=== PATIENT | male | born 1990 | race Caucasian/White ===

== ENCOUNTER 2018-05-19 15:56 | Emergency (ER) | payer MEDICAID ==
[2018-05-19 16:04] VITALS: RESP 18; TEMP 98.1; O2SAT 98; BMI 26.6
[2018-05-19] MEDS ORDERED: Sodium Chloride 0.9% 1,000 ML IV STA (16:11)
[2018-05-19] MEDS ORDERED: Morphine 4 mg/ml ISec IVP STA (16:11)
--- NOTE | 2018-05-19 16:11 | ED PDOC ---
Arrival/HPI - General Chief Complaint: Rib Injury Time Seen by Provider: 05/19/18 16:06 Historian: Patient - History of Present Illness Narrative History of Present Illness (Text): 05/19/18 16:06 A 28 year old male, no significant past medical history, nkda, GCS 15, does not take any anti-platelets or any anti-coagulants, presents to the emergency department complaining of right lower rib and rt. upper abdominal pain s/p fall this morning. 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 upper abdominal region. Patient also mentions every time he takes a deep breath , coughs, or turns, pain worsens, no left sided chest pain, no head or neck injury, no back injury, no LOC, able to recall the whole event. Patient denies any cervical spinal injury, hematuria, fever, chills, chest pain, shortness of breath, palpitations, or any other complaints at this time. Time/Duration: Other (this morning) Symptom Onset: Sudden Symptom Course: Unchanged Past Medical History - Provider Review Nursing Documentation Reviewed: Yes - Infectious Disease Hx of Infectious Diseases: None - Psychiatric Hx Substance Use: No - Surgical History Other/Comment: mouth surgery - Anesthesia Hx Anesthesia: Yes Hx Anesthesia Reactions: No Hx Malignant Hyperthermia: No Family/Social History - Physician Review Nursing Documentation Reviewed: Yes Family/Social History: No Known Family HX Smoking Status: Never Smoked Hx Alcohol Use: Yes Frequency of alcohol use: Socially Hx Substance Use: No Allergies/Home Meds Allergies/Adverse Reactions: Allergies No Known Allergies Allergy (Verified 05/19/18 16:05) Review of Systems - Physician Review All systems were reviewed & negative as marked: Yes - Review of Systems Constitutional: absent: Fatigue, Fevers, Night Sweats Respiratory: absent: SOB Cardiovascular: absent: Chest Pain, Palpitations Gastrointestinal: Abdominal Pain. absent: Nausea, Vomiting Genitourinary Male: absent: Hematuria Musculoskeletal: Arthralgias. absent: Back Pain, Neck Pain, Joint Swelling, Myalgias Skin: absent: Rash, Pruritis, Skin Lesions, Laceration, Cellulitis Neurological: absent: Headache, Dizziness, Focal Weakness, Gait Changes, Speech Changes, Facial Droop, Disequilibrium, Seizure Psychiatric: absent: Anxiety, Depression, Suicidal Ideation Physical Exam Vital Signs Reviewed: Yes Vital Signs Temp Pulse Resp BP Pulse Ox 05/19/18 16:36 79 18 133/68 98 05/19/18 16:03 98.1 F 82 18 135/71 98 Temperature: Afebrile Blood Pressure: Normal Pulse: Regular Respiratory Rate: Normal Appearance: Positive for: Uncomfortable Pain Distress: Severe Mental Status: Positive for: Alert and Oriented X 3 - Systems Exam Head: Present: Atraumatic, Normocephalic, Other (no facial bony tenderness or swelling). No: Tenderness, Contusion, Swelling, Ecchymosis, Abrasion, Laceration Pupils: Present: PERRL. No: Sluggish, Non-Reactive Extroacular Muscles: Present: EOMI. No: Entrapment Conjunctiva: Present: Normal Ears: Present: NORMAL TM, Normal Canal. No: Erythema Mouth: Present: Moist Mucous Membranes Pharnyx: Present: Normal. No: ERYTHEMA, EXUDATE, TONSILS ENLARGED Nose (External): Present: Atraumatic. No: Abrasion, Contusion, Laceration Nose (Internal): Present: Normal Inspection, No Active Bleeding. No: Rhinorrhea , Septal Hematoma, Epistaxis Neck: Present: Normal Range of Motion, Trachea Midline. No: Meningeal Signs, MIDLINE TENDERNESS, Paraspinal Tenderness, Lymphadenopathy Respiratory/Chest: Present: Clear to Auscultation, Good Air Exchange, Tender to Palpation (tenderness to right anterior lateral lower ribcage region). No: Respiratory Distress, Accessory Muscle Use, Wheezes, Rales, Retracting, Rhonchi , Tachypneic Cardiovascular: Present: Regular Rate and Rhythm, Normal S1, S2. No: Murmurs Abdomen: Present: Tenderness (+TTP on the RUQ region, negative weinberg sign), Normal Bowel Sounds. No: Distention, Rebound, Guarding, Scars Back: Present: Normal Inspection. No: CVA Tenderness, Midline Tenderness, Paraspinal Tenderness, Pain with Leg Raise, Decubitus Ulcer Upper Extremity: Present: Normal Inspection, Normal ROM, Neurovascularly Intact , Capillary Refill < 2s. No: Cyanosis, Edema, Deformity Lower Extremity: Present: Normal Inspection, NORMAL PULSES, Normal ROM, Neurovascularly Intact, Capillary Refill < 2 s. No: Edema, Tenderness, Swelling , Deformity Neurological: Present: GCS=15, CN II-XII Intact, Speech Normal, Motor Func Grossly Intact, Gait Normal, Memory Normal Skin: Present: Warm, Dry, Normal Color. No: Rashes Psychiatric: Present: Alert, Oriented x 3, Normal Insight, Normal Concentration Medical Decision Making ED Course and Treatment: 05/19/18 16:08 Impression: 28 year old male with right rib pain s/p fall. Physical exam shows tenderness to right anterior lateral lower ribcage; and abdominal RUQ. Plan: -- Abd/Pelvis CT IV contrast only -- Chest CT w contrast -- Labs -- Morphine -- IV Fluids -- Reassess and disposition 05/19/18 18:49 -labs are non-significant -CT abdomen and pelvis: Minimally displaced/overlapping fracture of the right 7th costochondral cartilage. -Pain decrease, request more pain, toradol 30IV ordered -Incentive spirometer ordered, all labs and radiology results discussed with him. -I checked the [facility] report, no visible signs of drug abuse and unable to see a profile for him. -Discharge home with incentive spirometer, motrin, percocet, ice compression, follow up with your own pmd and orthopedic within 2 days, return to the ER for any new or worsening signs or symptoms. - Lab Interpretations Lab Results: 05/19/18 16:20 05/19/18 16:20 Lab Results 05/19/18 16:20: WBC 8.2, RBC 5.45, Hgb 15.5, Hct 43.6, MCV 80.0, MCH 28.4, MCHC 35.6, RDW 13.5, Plt Count 200, MPV 10.9, Gran % 52.0, Lymph % (Auto) 37.9 H, Bent % (Auto) 8.5 H, Eos % (Auto) 1.2 L, Baso % (Auto) 0.4, Gran # 4.26, Lymph # (Auto) 3.1, Bent # (Auto) 0.7 H, Eos # (Auto) 0.1, Baso # (Auto) 0.03 05/19/18 16:20: Sodium 145, Potassium 4.4, Chloride 105, Carbon Dioxide 25, Anion Gap 19, BUN 13, Creatinine 0.9, Est GFR ( Amer) > 60, Est GFR (Non- Af Amer) > 60, Random Glucose 87, Calcium 9.2, Total Bilirubin 2.2 H, AST 32, ALT 47, Alkaline Phosphatase 80, Total Protein 8.1, Albumin 4.7, Globulin 3.4, Albumin/Globulin Ratio 1.4 05/19/18 16:20: PT 13.1 H, INR 1.15 H, APTT 27.8 I have reviewed the lab results: Yes - RAD Interpretation Radiology Orders: 05/19/18 16:11 CHEST,ABD,PEL W/IV CONT ONLY [CT] Stat PROCEDURE: CT Chest, Abdomen and Pelvis with intravenous contrast HISTORY: rt. lower rib injury s/p trauma COMPARISON: None. TECHNIQUE: IV dose administered: 100 mL Omnipaque 350 Radiation dose: Total exam DLP = 749.3 mGy-cm. This CT exam was performed using one or more of the following dose reduction techniques: Automated exposure control, adjustment of the mA and/or kV according to patient size, and/or use of iterative reconstruction technique. FINDINGS: LUNGS: Clear. No nodule, mass or consolidation. MEDIASTINUM: Unremarkable. Normal caliber aorta and pulmonary arterial trunk. No aortic dissection. Normal size heart. LYMPH NODES: Unremarkable. PLEURA: Unremarkable. No pneumothorax. No pleural fluid. LIVER: Unremarkable. No gross lesion or ductal dilatation. GALLBLADDER AND BILE DUCTS: Unremarkable. PANCREAS: Unremarkable. No gross lesion or ductal dilatation. SPLEEN: Unremarkable. ADRENALS: Unremarkable. No mass. KIDNEYS AND URETERS: Unremarkable. No hydronephrosis. No solid mass. VASCULATURE: Unremarkable. No aortic aneurysm. BOWEL: Unremarkable. No obstruction. No gross mural thickening. APPENDIX: Normal appendix. PERITONEUM: Unremarkable. No free fluid. No free air. LYMPH NODES: Unremarkable. No enlarged lymph nodes. BLADDER: Unremarkable. REPRODUCTIVE: Unremarkable. BONES: Minimally displaced/overlapping fracture of the right 7th costochondral cartilage. OTHER FINDINGS: None. IMPRESSION: Minimally displaced/overlapping fracture of the right 7th costochondral cartilage. Senior Partner: Radiologist - Medication Orders Current Medication Orders: Discontinued Medications Sodium Chloride (Sodium Chloride 0.9%) 1,000 mls @ 999 mls/hr IV .Q1H1M STA Stop: 05/19/18 17:11 Last Admin: 05/19/18 16:28 Dose: 999 mls/hr eMAR Start Stop Document 05/19/18 16:28 SF (Rec: 05/19/18 16:28 SF [facility] [email or web address]) Intravenous Solution Start Date 05/19/18 Start Time 16:28 End Date 05/19/18 End time 17:29 Total Infusion Time 61 Morphine Sulfate (Morphine) 4 mg IVP STAT STA Stop: 05/19/18 16:12 Last Admin: 05/19/18 16:36 Dose: 4 mg MAR Pain Assessment Document 05/19/18 16:36 SF (Rec: 05/19/18 16:36 SF [place] [id number]) Pain Reassessment Is this a pain reassessment? Yes Sleep Is patient sleeping during reassessment? No Presence of Pain Presence of Pain Yes IVP Administration Document 05/19/18 16:36 SF (Rec: 05/19/18 16:36 SF [facility] Charges for Administration # of IVP Administrations 1 Ondansetron HCl (Zofran Inj) 4 mg IVP STAT STA Stop: 05/19/18 16:14 Last Admin: 05/19/18 16:36 Dose: 4 mg IVP Administration Document 05/19/18 16:36 SF (Rec: 05/19/18 16:36 [place] [id number]) Charges for Administration # of IVP Administrations 1 - PA / CREDIT REVIEW MANAGER / Resident Statement MD/DO has reviewed & agrees with the documentation as recorded. - Scribe Statement The provider has reviewed the documentation as recorded by the Kirsten Lebron Provider Scribe Attestation: All medical record entries made by the [place] were at my direction and personally dictated by me. I have reviewed the chart and agree that the record accurately reflects my personal performance of the history, physical exam, medical decision making, and the department course for this patient. I have also personally directed, reviewed, and agree with the discharge instructions and disposition. Disposition/Present on Arrival - Present on Arrival Any Indicators Present on Arrival: No History of DVT/PE: No History of Uncontrolled Diabetes: No Urinary Catheter: No History of Decub. Ulcer: No History Surgical Site Infection Following: None - Disposition Have Diagnosis and Disposition been Completed?: Yes Diagnosis: Rib fracture, Contusion Disposition: HOME/ ROUTINE Disposition Time: 18:51 Patient Plan: Discharge Condition: IMPROVED Additional Instructions: -Discharge home with incentive spirometer, motrin, percocet, ice compression, follow up with your own pmd and orthopedic within 2 days, return to the ER for any new or worsening signs or symptoms. Prescriptions: Ibuprofen [Motrin Tab] 600 mg PO QID PRN #30 tab PRN Reason: Other oxyCODONE/Acetaminophen [Percocet 5/325 mg Tab] 1 tab PO QID PRN #12 tab PRN Reason: Other Referrals: Angel Villaseñor MD [Staff Provider] - Follow up with primary Forms: WORK NOTE
[2018-05-19 16:36] VITALS: BP 133/68; PULSE 79
[2018-05-19 16:37] LABS: BASO # 0.03 K/mm3 (0.0-2.0); BASO % 0.4 % (0.0-3.0); EOS # 0.1 (0.0-0.7); EOS % 1.2 % (1.5-5.0); GRAN # 4.26 (1.4-6.5); HEMOGLOBIN 15.5 g/dL (14.0-18.0); LYMPH # 3.1 (1.2-3.4); LYMPH % 37.9 % (22.0-35.0); MEAN CORPUSCULAR HEMOGLOBIN 28.4 pg (25.0-35.0); MEAN CORPUSCULAR HGB CONC 35.6 g/dl (31.0-37.0); MEAN PLATELET VOLUME 10.9 fl (7.0-11.0); MONO # 0.7 (0.1-0.6); MONO % 8.5 % (1.0-6.0); RBC 5.45 10^6/uL (3.5-6.1); RED CELL DISTRIBUTION WIDTH 13.5 % (11.5-14.5); WHITE BLOOD COUNT 8.2 10^3/ul (4.5-11.0)
[2018-05-19 16:48] LABS: ALB/GLOB RATIO 1.4 (1.1-1.8); ALBUMIN 4.7 g/dL (3.0-4.8); ALT/SGPT 47 U/L (7-56); AST/SGOT 32 U/L (17-59); BLOOD UREA NITROGEN 13 mg/dL (7-21); CALCIUM 9.2 mg/dL (8.4-10.5); GFR AFRICAN-AMERICAN > 60; GFR NON-AFRICAN AMERICAN > 60
[2018-05-19 16:52] LABS: INR 1.15 (0.93-1.08); PARTIAL THROMBOPLASTIN TIME 27.8 Seconds (25.1-36.5); PROTHROMBIN TIME 13.1 SECONDS (9.4-12.5)
[2018-05-19] MEDS ORDERED: Iohexol 350 MG/100 ML VIAL ONE (16:57)
--- NOTE | 2018-05-19 18:25 | CT ---
PROCEDURE: CT Chest, Abdomen and Pelvis with intravenous contrast HISTORY: rt. lower rib injury s/p trauma COMPARISON: None. TECHNIQUE: IV dose administered: 100 mL Omnipaque 350 Radiation dose: Total exam DLP = 749.3 mGy-cm. This CT exam was performed using one or more of the following dose reduction techniques: Automated exposure control, adjustment of the mA and/or kV according to patient size, and/or use of iterative reconstruction technique. FINDINGS: LUNGS: Clear. No nodule, mass or consolidation. MEDIASTINUM: Unremarkable. Normal caliber aorta and pulmonary arterial trunk. No aortic dissection. Normal size heart. LYMPH NODES: Unremarkable. PLEURA: Unremarkable. No pneumothorax. No pleural fluid. LIVER: Unremarkable. No gross lesion or ductal dilatation. GALLBLADDER AND BILE DUCTS: Unremarkable. PANCREAS: Unremarkable. No gross lesion or ductal dilatation. SPLEEN: Unremarkable. ADRENALS: Unremarkable. No mass. KIDNEYS AND URETERS: Unremarkable. No hydronephrosis. No solid mass. VASCULATURE: Unremarkable. No aortic aneurysm. BOWEL: Unremarkable. No obstruction. No gross mural thickening. APPENDIX: Normal appendix. PERITONEUM: Unremarkable. No free fluid. No free air. LYMPH NODES: Unremarkable. No enlarged lymph nodes. BLADDER: Unremarkable. REPRODUCTIVE: Unremarkable. BONES: Minimally displaced/overlapping fracture of the right 7th costochondral cartilage. OTHER FINDINGS: None. IMPRESSION: Minimally displaced/overlapping fracture of the right 7th costochondral cartilage.
== END 2018-05-19 19:18 | disposition home or self-care (01) ==
LOC: ED 15:56
DX: S22.31XA Fracture of one rib, right side, initial encounter for closed fracture (principal); W01.0XXA Fall on same level from slipping, tripping and stumbling without subsequent striking against object, initial encounter
CPT/HCPCS: 71260; 74177; 80053; 85025; 85610; 85730; 96361; 96374; 96375; 99285; J1885; J2270; J2405; J7030; Q9967